=== PATIENT | female | born 1990 | race Two or more races ===

== ENCOUNTER 2018-06-07 12:27 | Inpatient (IN) | payer OTHER ==
[~2018-06-07] VITALS: Ht 160 cm; Wt 93.4 kg
[2018-06-07] VITALS (14 sets, daily range): BP systolic 110–135; BP diastolic 59–86
[2018-06-07 16:33] LABS: AMPHETAMINE NEGATIVE (500 ng/mL); BARBITURATES NEGATIVE (200 ng/mL); BENZODIAZEPINES NEGATIVE (150 ng/mL); BUPRENORPHINE NEGATIVE (10 ng/mL); COCAINE NEGATIVE (150 ng/mL); METHADONE NEGATIVE (200 ng/mL); METHAMPHETAMINE NEGATIVE (500 ng/mL); OPIATES (MORPHINE) NEGATIVE (100 ng/mL); OXYCODONE NEGATIVE (100 ng/mL); PHENCYCLIDINE NEGATIVE (25 ng/mL); PROPOXYPHENE NEGATIVE (300 ng/mL); THC CANNABINOIDS NEGATIVE (50 ng/mL); TRICYCLIC ANTIDEPRESSANTS NEGATIVE (300 ng/mL)
[2018-06-07 16:41] LABS: BASOPHIL (%) 0.2 % (0-1); EOSINOPHIL (%) 0.2 % (0-5); HEMATOCRIT 37.9 % (36.0-46.0); IMMATURE GRANULOCYTE (%) 0.3 % (0.0-0.7); LYMPHOCYTE (%) 21.1 % (15-42); LYMPHOCYTE COUNT 2.7 K/uL (1.0-2.8); MCH 31.3 PG (29.0-34.0); MCHC 34.3 G/DL (30.0-36.0); MCV 91.1 FL (83-99); MONOCYTE (%) 4.5 % (3-12); MONOCYTE COUNT 0.6 K/uL (0-0.8); NEUTROPHIL (%) 73.7 % (45-76); NEUTROPHIL COUNT 9.5 K/uL (1.8-6.4); PLATELET COUNT 235 K/uL (156-360); RBC DIS.WIDTH-CV 12.7 % (11.8-14.6); RBC DIS.WIDTH-SD 41.7 % (39-53); RED BLOOD COUNT 4.16 M/uL (3.80-5.20); WHITE BLOOD COUNT 12.9 K/uL (4.1-10.2)
[2018-06-08] VITALS (11 sets, daily range): BP systolic 96–112; BP diastolic 50–66
[2018-06-08 12:14] LABS: BASOPHIL (%) 0.1 % (0-1); EOSINOPHIL (%) 0 % (0-5); HEMATOCRIT 33.3 % (36.0-46.0); HEMOGLOBIN 11.2 G/DL (11.9-15.5); IMMATURE GRANULOCYTE (%) 0.5 % (0.0-0.7); LYMPHOCYTE COUNT 2.2 K/uL (1.0-2.8); MCHC 33.6 G/DL (30.0-36.0); MCV 92.2 FL (83-99); MONOCYTE (%) 7.4 % (3-12); MONOCYTE COUNT 1.2 K/uL (0-0.8); PLATELET COUNT 193 K/uL (156-360); RBC DIS.WIDTH-CV 12.9 % (11.8-14.6); RBC DIS.WIDTH-SD 43.8 % (39-53); RED BLOOD COUNT 3.61 M/uL (3.80-5.20); WHITE BLOOD COUNT 15.5 K/uL (4.1-10.2)
[2018-06-08 12:35] LABS: CREATININE 0.8 mg/dL (0.6-1.3); GFR ESTIMATE (CALCULATED) > 59 mL/min/; UREA NITROGEN (BUN) 10 mg/dL (9-23)
[2018-06-09 07:25] VITALS: BP 111/61
[2018-06-09 10:44] VITALS: BP 110/64
[2018-06-09 15:32] VITALS: BP 124/69
[2018-06-09 23:00] VITALS: BP 120/72
[2018-06-10 03:00] VITALS: BP 135/65
[2018-06-10 07:45] VITALS: BP 104/65
[2018-06-10] MEDS ORDERED: DOCUSATE SODIU100 MG PO (09:26)
[2018-06-10] MEDS ORDERED: NICOTINE PATCH1 EAC2 TD (09:26)
[2018-06-10] MEDS ORDERED: BREAST PUMP MC (09:26)
[2018-06-10] MEDS ORDERED: MOTRIN600 MG PO (09:26)
[2018-06-10] MEDS ORDERED: ENDOCET 5-3251 EACH PO (09:26)
== END 2018-06-10 13:29 | disposition home or self-care (01) | DRG 766 ==
LOC: LDRP-OP 12:27 → 2WEST 12:28
PROVIDERS: Advanced Practice Midwife; Obstetrics & Gynecology
PROC: 3E0R3BZ Introduction of Anesthetic Agent into Spinal Canal, Percutaneous Approach (ICD-10-PCS; principal; 2018-06-07)
PROC: 3E0P7VZ Introduction of Hormone into Female Reproductive, Via Natural or Artificial Opening (ICD-10-PCS; principal; 2018-06-07)
PROC: 00HU33Z Insertion of Infusion Device into Spinal Canal, Percutaneous Approach (ICD-10-PCS; principal; 2018-06-07)
PROC: 10D00Z1 Extraction of Products of Conception, Low, Open Approach (ICD-10-PCS; 2018-06-08)
DX: O76 Abnormality in fetal heart rate and rhythm complicating labor and delivery (principal); O42.92 Full-term premature rupture of membranes, unspecified as to length of time between rupture and onset of labor; O69.81X0 Labor and delivery complicated by cord around neck, without compression, not applicable or unspecified; E66.9 Obesity, unspecified; Z68.39 Body mass index [BMI] 39.0-39.9, adult; D64.9 Anemia, unspecified; O99.02 Anemia complicating childbirth; Z37.0 Single live birth; Z3A.39 39 weeks gestation of pregnancy; F17.200 Nicotine dependence, unspecified, uncomplicated; O99.334 Smoking (tobacco) complicating childbirth
CPT/HCPCS: 82565; 84520; 85025; C1755; G0378; J0595; J0690; J1885; J2274; J2405; J3010; J7120